=== PATIENT | female | born 1945 | race Caucasian/White ===

== ENCOUNTER 2020-07-28 14:27 | Inpatient (IN) | payer MEDICARE ==
[~2020-07-28] VITALS: Ht 157.5 cm; Wt 59.0 kg
[2020-07-28 15:32] LABS: Basophils # (auto) 0 10 ^3/uL (0-0.2); Eosinophils # (auto) 0 10 ^3/uL (0-0.8); Eosinophils % (auto) 0.2 % (0.0-7.0); Monocytes # (auto) 0.4 10 ^3/uL (0-1.3); Red Blood Cells 5.22 10^6/uL (4.0-5.20)
[2020-07-28 15:33] LABS: Basophils % (auto) 0.4 % (0.0-2.0); Hemoglobin 11.9 g/dL (12.2-16.2); Lymphocytes # (auto) 1.6 10 ^3/uL (0.4-5.4); Lymphocytes % (auto) 23.3 % (10.0-50.0); Mean Corpuscular Hemoglobin 22.8 pg (28.0-32.0); Mean Corpuscular Hgb Conc. 30.5 g/dL (32.0-36.0); Mean Corpuscular Volume 74.7 fL (80.0-100.0); Monocytes % (auto) 5.1 % (0.0-12.0); Nucleated Red Blood Cells % 0.9 %; Platelet Count (auto) 213 10^3/uL (140-450)
[2020-07-28 15:35] LABS: Red Cell Distribution Width 21.5 % (11.8-14.3)
[2020-07-28 15:57] LABS: Albumin 2.4 g/dL (3.4-5.0); Calcium 8.3 mg/dL (8.5-10.1); Potassium 5.1 mmol/L (3.5-5.1)
[2020-07-28 16:05] LABS: BUN/Creatinine Ratio 31.3; Bilirubin, Total 1.1 mg/dL (0.2-1.0)
[2020-07-28] MEDS ORDERED: POTASSIUM EFFERVESENT TAB 25 MEQ PO ONE (19:00)
[2020-07-28] MEDS ORDERED: FUROSEMIDE 40 MG/4 ML VIAL IV ONE (19:00)
[2020-07-28] MEDS ORDERED: ONDANSETRON HCL 4 MG/2 ML VIAL IV ONE (19:30)
[2020-07-28] MEDS ORDERED: ASPirin 81 mg TAB PO ONE (19:30)
[2020-07-28] MEDS ORDERED: MORPHINE SULFATE 4 MG/ML SYR/VIAL IV ONE (19:30)
[2020-07-28] MEDS ORDERED: cefTRIAXone 1GM/50ML D5W 50 ML IV ONE (19:30)
[2020-07-28] MEDS ORDERED: DOXYCYCLINE 100MG/250ML 250 ML IV ONE (19:30)
[2020-07-28] MEDS ORDERED: ONDANSETRON HCL 4 MG/2 ML VIAL IV PRN (21:00)
[2020-07-28] MEDS ORDERED: ACETAMINOPHEN 325 MG TAB PO PRN (21:00)
[2020-07-28] MEDS ORDERED: MORPHINE SULF INJ 2 MG/ML SYRINGE 1ML IV PRN (21:00)
[2020-07-28] MEDS ORDERED: NITROGLYCERIN 0.4 MG SL TAB SL PRN (21:00)
[2020-07-28] MEDS ORDERED: GABAPENTIN 300 MG CAP PO ONE (21:00)
[2020-07-28 21:20] LABS: Urine Bacteria FEW /hpf (None Seen); Urine Blood Negative /uL (Negative); Urine Hyaline Cast FEW /lpf (0 - 2); Urine Specific Gravity 1.008 (1.001-1.035); Urine WBC 1 /hpf (0 - 5)
[2020-07-28] MEDS: GABAPENTIN 300 MG CAP PO SCH (22:42)
[2020-07-28] MEDS: ATORVASTATIN 20 MG TAB PO SCH (22:46)
[2020-07-28] MEDS: ASCORBIC ACID 500 MG TAB PO SCH (22:46)
[2020-07-28] MEDS: HYDROcodone-ACET 5/325MG TAB PO PRN (23:11)
[2020-07-28] MEDS ORDERED: ALBUTEROL SULF 2.5 MG/0.5ML(0.5%) NEB SOLN ONE (23:50)
[2020-07-28] MEDS: ALBUTEROL SULF 2.5 MG/0.5ML(0.5%) NEB SOLN NEB PRN (23:53)
[2020-07-29 00:02] LABS: Calcium 8.3 mg/dL (8.5-10.1); Potassium 4.9 mmol/L (3.5-5.1)
[2020-07-29 00:04] LABS: BUN/Creatinine Ratio 35.2
[2020-07-29 02:29] VITALS: BP 124/55
[2020-07-29] MEDS ORDERED: INFLUENZA QUAD 2020-2021 0.5 ML SYRG IM ONE (04:15)
[2020-07-29] MEDS ORDERED: LOSA-39 PO (04:33)
[2020-07-29] MEDS ORDERED: HYDR-4072 PO (04:33)
[2020-07-29] MEDS ORDERED: GABA300C10 PO (04:33)
[2020-07-29] MEDS ORDERED: LEVO150T10 PO (04:33)
[2020-07-29] MEDS ORDERED: LORA0.5T20 PO (04:33)
[2020-07-29] MEDS ORDERED: OMEP-260 PO (04:33)
[2020-07-29] MEDS ORDERED: CELE1CAP8 PO (04:33)
[2020-07-29 05:12] VITALS: BP 122/59
[2020-07-29] MEDS: FUROSEMIDE 40 MG/4 ML VIAL IV SCH ×2 (05:50→17:44)
[2020-07-29] MEDS: LEVOTHYROXINE SODIUM 50 MCG TAB PO SCH (05:51)
[2020-07-29] MEDS: HYDROcodone-ACET 5/325MG TAB PO PRN ×2 (06:19→20:56)
[2020-07-29 08:00] VITALS: BP 132/64
[2020-07-29] MEDS: ASPirin 81 mg TAB PO SCH (09:23)
[2020-07-29] MEDS: ZINC SULFATE 220mg CAP or TAB PO SCH (09:23)
[2020-07-29] MEDS: ASCORBIC ACID 500 MG TAB PO SCH ×2 (09:23→23:07)
[2020-07-29] MEDS: PANTOPRAZOLE 40 MG TAB PO SCH (09:24)
[2020-07-29] MEDS: GABAPENTIN 300 MG CAP PO SCH ×2 (09:24→23:07)
[2020-07-29] MEDS: AZITHROMYCIN 500MG/ 250ML 250 ML IV SCH (09:25)
[2020-07-29] MEDS: ENOXAPARIN SOD 40 MG/0.4 ML SYRINGE SC SCH (09:25)
[2020-07-29 09:43] LABS: Basophils # (auto) 0 10 ^3/uL (0-0.2); Eosinophils # (auto) 0.1 10 ^3/uL (0-0.8); Lymphocytes # (auto) 1.5 10 ^3/uL (0.4-5.4); Monocytes # (auto) 0.5 10 ^3/uL (0-1.3)
[2020-07-29 09:45] LABS: Basophils % (auto) 0.2 % (0.0-2.0); Eosinophils % (auto) 1.4 % (0.0-7.0); Hematocrit 38.6 % (36.0-46.0); Mean Corpuscular Hemoglobin 22.8 pg (28.0-32.0); Mean Corpuscular Hgb Conc. 31.1 g/dL (32.0-36.0); Mean Corpuscular Volume 73.3 fL (80.0-100.0); Monocytes % (auto) 5.5 % (0.0-12.0); Neutrophils # (auto) 6.7 10 ^3/uL (1.6-8.6); Neutrophils % (auto) 75.9 % (37.0-80.0); Nucleated Red Blood Cells % 0.6 %; Platelet Count (auto) 241 10^3/uL (140-450); Red Blood Cells 5.26 10^6/uL (4.0-5.20); White Blood Cell 8.8 10^3/uL (4.4-10.8)
[2020-07-29] MEDS ORDERED: LOSARTAN POTASSIUM 50 MG TAB PO SCH (10:00)
[2020-07-29 10:05] LABS: Albumin 2.4 g/dL (3.4-5.0); BUN/Creatinine Ratio 35.9; Calcium 8.3 mg/dL (8.5-10.1); Potassium 4.5 mmol/L (3.5-5.1)
[2020-07-29 10:06] LABS: Red Cell Distribution Width 21.6 % (11.8-14.3)
[2020-07-29 10:11] LABS: Bilirubin, Total 1.1 mg/dL (0.2-1.0); Total Protein 5.9 g/dL (6.4-8.2)
[2020-07-29] MEDS ORDERED: CARVEDILOL 12.5 MG TAB PO ONE (11:15)
[2020-07-29 11:27] LABS: Cholesterol 94 mg/dL (< 200)
[2020-07-29 11:29] LABS: HDL Cholesterol 13 mg/dL (40-59); LDL Cholesterol 74 mg/dL (< 100); Triglycerides 80 mg/dL (< 150)
[2020-07-29] MEDS ORDERED: CEFTRIAXONE SODIUM 2 GM in D5W 5% 50 ML IV ONE (13:15)
[2020-07-29] MEDS ORDERED: LORazepam 0.5 MG TAB PO PRN (13:15)
[2020-07-29 16:00] VITALS: BP 141/75
[2020-07-29 21:35] VITALS: BP 139/71
[2020-07-29] MEDS: SACUBITRIL-VALSARTAN 24mg/26mg TAB PO SCH (23:06)
[2020-07-29] MEDS: CARVEDILOL 12.5 MG TAB PO SCH (23:06)
[2020-07-29] MEDS: ATORVASTATIN 20 MG TAB PO SCH (23:07)
[2020-07-29] MEDS: TEMAZEPAM 15 MG CAP PO PRN (23:09)
[2020-07-30 05:16] VITALS: BP 114/53
[2020-07-30] MEDS: LEVOTHYROXINE SODIUM 50 MCG TAB PO SCH (06:57)
[2020-07-30] MEDS: FUROSEMIDE 40 MG/4 ML VIAL IV SCH ×2 (06:57→18:26)
[2020-07-30 07:50] LABS: Potassium 3.2 mmol/L (3.5-5.1)
[2020-07-30 08:00] LABS: Albumin 2.2 g/dL (3.4-5.0); BUN/Creatinine Ratio 33.3; Bilirubin, Total 1.4 mg/dL (0.2-1.0); Calcium 7.7 mg/dL (8.5-10.1); Magnesium 1.7 mg/dL (1.6-2.6); Total Protein 5.6 g/dL (6.4-8.2)
[2020-07-30 08:44] VITALS: BP 102/50
[2020-07-30] MEDS ORDERED: POTASSIUM CHL 20 Meq TABLET PO ONE (11:45)
[2020-07-30] MEDS ORDERED: MAGNESIUM SULFATE 1GM/100ML 100 ML IV ONE (11:45)
[2020-07-30] MEDS: ZINC SULFATE 220mg CAP or TAB PO SCH (12:07)
[2020-07-30] MEDS: cefTRIAXone 1GM/50ML D5W 50 ML IV SCH (12:07)
[2020-07-30] MEDS: ASPirin 81 mg TAB PO SCH (12:07)
[2020-07-30] MEDS: SACUBITRIL-VALSARTAN 24mg/26mg TAB PO SCH ×2 (12:08→22:29)
[2020-07-30] MEDS: CARVEDILOL 12.5 MG TAB PO SCH ×2 (12:08→22:25)
[2020-07-30] MEDS: PANTOPRAZOLE 40 MG TAB PO SCH (12:08)
[2020-07-30] MEDS: ASCORBIC ACID 500 MG TAB PO SCH ×2 (12:11→22:29)
[2020-07-30] MEDS: ENOXAPARIN SOD 40 MG/0.4 ML SYRINGE SC SCH (12:12)
[2020-07-30] MEDS: AZITHROMYCIN 500MG/ 250ML 250 ML IV SCH (12:20)
[2020-07-30] MEDS ORDERED: POTASSIUM EFFERVESENT TAB 25 MEQ PO ONE (13:45)
[2020-07-30 16:10] VITALS: BP 120/51
[2020-07-30 21:21] VITALS: BP 132/55
[2020-07-30] MEDS: ATORVASTATIN 20 MG TAB PO SCH (22:29)
[2020-07-30] MEDS: TEMAZEPAM 15 MG CAP PO PRN (22:30)
[2020-07-30] MEDS: HYDROcodone-ACET 5/325MG TAB PO PRN (22:30)
[2020-07-31] MEDS: HYDROcodone-ACET 5/325MG TAB PO PRN (03:51)
[2020-07-31 04:39] VITALS: BP 127/26
[2020-07-31] MEDS: LEVOTHYROXINE SODIUM 50 MCG TAB PO SCH (06:00)
[2020-07-31] MEDS: FUROSEMIDE 40 MG/4 ML VIAL IV SCH ×2 (06:00→17:32)
[2020-07-31 06:49] LABS: Albumin 2.1 g/dL (3.4-5.0); Bilirubin, Total 1.3 mg/dL (0.2-1.0); Calcium 7.3 mg/dL (8.5-10.1); Magnesium 1.8 mg/dL (1.6-2.6); Total Protein 5.4 g/dL (6.4-8.2)
[2020-07-31 06:57] LABS: Potassium 2.9 mmol/L (3.5-5.1)
[2020-07-31 07:48] VITALS: BP 122/59
[2020-07-31] MEDS: ENOXAPARIN SOD 40 MG/0.4 ML SYRINGE SC SCH (10:00)
[2020-07-31] MEDS: PANTOPRAZOLE 40 MG TAB PO SCH ×2 (10:00→10:34)
[2020-07-31] MEDS: ZINC SULFATE 220mg CAP or TAB PO SCH ×2 (10:00→10:32)
[2020-07-31] MEDS: ASCORBIC ACID 500 MG TAB PO SCH ×3 (10:00→22:23)
[2020-07-31] MEDS: ASPirin 81 mg TAB PO SCH (10:33)
[2020-07-31] MEDS: CARVEDILOL 12.5 MG TAB PO SCH ×2 (10:33→22:23)
[2020-07-31] MEDS: SACUBITRIL-VALSARTAN 24mg/26mg TAB PO SCH ×2 (10:33→22:22)
[2020-07-31] MEDS: AZITHROMYCIN 500MG/ 250ML 250 ML IV SCH (10:34)
[2020-07-31] MEDS: cefTRIAXone 1GM/50ML D5W 50 ML IV SCH (10:35)
[2020-07-31] MEDS ORDERED: POTASSIUM CHLORIDE 40 MEQ, LIDOCAINE 1% (LOCAL ANESTH.) 4 ML in SODIUM CHL 0.9% 250 ML IV ONE (12:45)
[2020-07-31] MEDS ORDERED: POTASSIUM EFFERVESENT TAB 25 MEQ PO ONE (12:45)
[2020-07-31 16:00] VITALS: BP 132/59
[2020-07-31] MEDS ORDERED: LORazepam 0.5 MG TAB PO PRN (17:45)
[2020-07-31] MEDS: ATORVASTATIN 20 MG TAB PO SCH (22:22)
[2020-07-31 23:47] VITALS: BP 133/60
[2020-08-01 05:00] VITALS: BP 132/63
[2020-08-01] MEDS: FUROSEMIDE 40 MG/4 ML VIAL IV SCH ×2 (05:52→18:22)
[2020-08-01] MEDS: ALBUTEROL SULF 2.5 MG/0.5ML(0.5%) NEB SOLN NEB PRN (06:15)
[2020-08-01 06:25] LABS: Basophils # (auto) 0 10 ^3/uL (0-0.2); Eosinophils # (auto) 0 10 ^3/uL (0-0.8); Eosinophils % (auto) 0.1 % (0.0-7.0); Lymphocytes # (auto) 1.2 10 ^3/uL (0.4-5.4); Monocytes # (auto) 0.5 10 ^3/uL (0-1.3); Monocytes % (auto) 5.7 % (0.0-12.0); Neutrophils # (auto) 6.9 10 ^3/uL (1.6-8.6); Neutrophils % (auto) 80.1 % (37.0-80.0)
[2020-08-01 06:28] LABS: Hematocrit 40.7 % (36.0-46.0); Hemoglobin 12.8 g/dL (12.2-16.2); Lymphocytes % (auto) 14.1 % (10.0-50.0); Mean Corpuscular Hemoglobin 22.8 pg (28.0-32.0); Mean Corpuscular Hgb Conc. 31.4 g/dL (32.0-36.0); Mean Corpuscular Volume 72.8 fL (80.0-100.0); Nucleated Red Blood Cells % 0.4 %; Platelet Count (auto) 248 10^3/uL (140-450); Red Blood Cells 5.59 10^6/uL (4.0-5.20); White Blood Cell 8.7 10^3/uL (4.4-10.8)
[2020-08-01 06:58] LABS: Albumin 2.3 g/dL (3.4-5.0); BUN/Creatinine Ratio 27.3; Bilirubin, Total 1.5 mg/dL (0.2-1.0); Calcium 7.3 mg/dL (8.5-10.1); Total Protein 6.1 g/dL (6.4-8.2)
[2020-08-01 07:12] LABS: Red Cell Distribution Width 21.9 % (11.8-14.3)
[2020-08-01 07:29] LABS: Potassium 2.8 mmol/L (3.5-5.1)
[2020-08-01] MEDS: LORazepam 2MG/ML-1ML VIAL IV PRN (07:57)
[2020-08-01] MEDS: Ensure HIGH Protein Chocolate 8oz Bottle PO SCH ×4 (07:58→18:23)
[2020-08-01 08:00] VITALS: BP 137/59
[2020-08-01] MEDS: cefTRIAXone 1GM/50ML D5W 50 ML IV SCH (09:45)
[2020-08-01] MEDS: ASPirin 81 mg TAB PO SCH (10:00)
[2020-08-01] MEDS: ZINC SULFATE 220mg CAP or TAB PO SCH (10:00)
[2020-08-01] MEDS: ASCORBIC ACID 500 MG TAB PO SCH ×2 (10:00→22:00)
[2020-08-01] MEDS: CARVEDILOL 12.5 MG TAB PO SCH ×2 (10:00→22:00)
[2020-08-01] MEDS: SACUBITRIL-VALSARTAN 24mg/26mg TAB PO SCH ×2 (10:00→22:00)
[2020-08-01] MEDS: PANTOPRAZOLE 40 MG TAB PO SCH (10:00)
[2020-08-01] MEDS: ENOXAPARIN SOD 40 MG/0.4 ML SYRINGE SC SCH (10:00)
[2020-08-01] MEDS: AZITHROMYCIN 500MG/ 250ML 250 ML IV SCH (10:00)
[2020-08-01] MEDS ORDERED: POTASSIUM CHLORIDE 40 MEQ, LIDOCAINE 1% (LOCAL ANESTH.) 4 ML in SODIUM CHL 0.9% 250 ML IV ONE (12:45)
[2020-08-01] MEDS ORDERED: POTASSIUM EFFERVESENT TAB 25 MEQ PO ONE (12:45)
[2020-08-01] MEDS: MORPHINE SULF INJ 2 MG/ML SYRINGE 1ML IV PRN ×2 (13:44→21:05)
[2020-08-01 17:06] VITALS: BP 157/72
[2020-08-01 18:29] LABS: Calcium 7.5 mg/dL (8.5-10.1); Potassium 3.2 mmol/L (3.5-5.1)
[2020-08-01 20:56] VITALS: BP 138/71
[2020-08-01 21:09] VITALS: BP 138/71
[2020-08-01] MEDS: ATORVASTATIN 20 MG TAB PO SCH (22:00)
[2020-08-02] MEDS: LORazepam 2MG/ML-1ML VIAL IV PRN (00:45)
[2020-08-02 05:00] VITALS: BP 130/65
[2020-08-02] MEDS: FUROSEMIDE 40 MG/4 ML VIAL IV SCH (06:02)
[2020-08-02] MEDS: MORPHINE SULF INJ 2 MG/ML SYRINGE 1ML IV PRN (06:37)
[2020-08-02 06:57] LABS: Basophils # (auto) 0 10 ^3/uL (0-0.2); Eosinophils # (auto) 0 10 ^3/uL (0-0.8)
[2020-08-02 07:00] LABS: Hematocrit 39.2 % (36.0-46.0); Hemoglobin 11.8 g/dL (12.2-16.2); Lymphocytes % (auto) 9.1 % (10.0-50.0); Mean Corpuscular Hemoglobin 22.2 pg (28.0-32.0); Mean Corpuscular Hgb Conc. 30.2 g/dL (32.0-36.0); Mean Corpuscular Volume 73.5 fL (80.0-100.0); Monocytes # (auto) 0.7 10 ^3/uL (0-1.3); Monocytes % (auto) 5.7 % (0.0-12.0); Neutrophils # (auto) 9.8 10 ^3/uL (1.6-8.6); Neutrophils % (auto) 85.2 % (37.0-80.0); Nucleated Red Blood Cells % 0.1 %; Platelet Count (auto) 236 10^3/uL (140-450); Red Blood Cells 5.33 10^6/uL (4.0-5.20); White Blood Cell 11.5 10^3/uL (4.4-10.8)
[2020-08-02 07:07] LABS: Potassium 3.1 mmol/L (3.5-5.1)
[2020-08-02 07:13] LABS: Calcium 7.7 mg/dL (8.5-10.1)
[2020-08-02 07:33] LABS: Red Cell Distribution Width 21.6 % (11.8-14.3)
[2020-08-02] MEDS: Ensure HIGH Protein Chocolate 8oz Bottle PO SCH ×2 (08:03→12:00)
[2020-08-02] MEDS ORDERED: LORazepam 2MG/ML-1ML VIAL IV PRN (09:00)
[2020-08-02] MEDS ORDERED: HYOSCYAMINE SULF 0.125 MG ODT TAB PO PRN (09:00)
[2020-08-02] MEDS ORDERED: MORPHINE SULF INJ 2 MG/ML SYRINGE 1ML IV PRN (09:00)
[2020-08-02] MEDS: cefTRIAXone 1GM/50ML D5W 50 ML IV SCH (09:01)
[2020-08-02] MEDS: AZITHROMYCIN 500MG/ 250ML 250 ML IV SCH (09:41)
[2020-08-02] MEDS: ASPirin 81 mg TAB PO SCH (09:41)
[2020-08-02] MEDS: ZINC SULFATE 220mg CAP or TAB PO SCH (09:41)
[2020-08-02] MEDS: CARVEDILOL 12.5 MG TAB PO SCH (09:42)
[2020-08-02] MEDS: PANTOPRAZOLE 40 MG TAB PO SCH (09:42)
[2020-08-02] MEDS: ASCORBIC ACID 500 MG TAB PO SCH (09:42)
[2020-08-02] MEDS: ENOXAPARIN SOD 40 MG/0.4 ML SYRINGE SC SCH (09:42)
[2020-08-02] MEDS: SACUBITRIL-VALSARTAN 24mg/26mg TAB PO SCH (09:42)
[2020-08-02] MEDS: POTASSIUM CHL 20MEQ/100ML 100 ML IV SCH ×2 (13:31→15:33)
[2020-08-02 16:00] VITALS: BP 124/44
[2020-08-02 16:15] VITALS: BP 130/65
== END 2020-08-02 17:00 | disposition hospice, home (50) | DRG 280 ==
LOC: ER 14:27 → EDBD 14:27 → TELE 14:28 → TELE-CENTR 07-29 02:15
PROVIDERS: ADMIT Nurse Practitioner; ATTEND Internal Medicine
PROC: 3E02340 Introduction of Influenza Vaccine into Muscle, Percutaneous Approach (ICD-10-PCS; 2020-07-29)
PROC: 5A09357 Assistance with Respiratory Ventilation, Less than 24 Consecutive Hours, Continuous Positive Airway Pressure (ICD-10-PCS; principal; 2020-08-01)
DX: I13.0 Hypertensive heart and chronic kidney disease with heart failure and stage 1 through stage 4 chronic kidney disease, or unspecified chronic kidney disease (principal); J18.9 Pneumonia, unspecified organism; I21.A1 Myocardial infarction type 2; J96.01 Acute respiratory failure with hypoxia; I50.43 Acute on chronic combined systolic (congestive) and diastolic (congestive) heart failure; N17.0 Acute kidney failure with tubular necrosis; G93.41 Metabolic encephalopathy; E44.0 Moderate protein-calorie malnutrition; Z20.822 Contact with and (suspected) exposure to COVID-19; N18.32 Chronic kidney disease, stage 3b; K76.0 Fatty (change of) liver, not elsewhere classified; E78.5 Hyperlipidemia, unspecified; E03.9 Hypothyroidism, unspecified; I50.82 Biventricular heart failure; E87.6 Hypokalemia; F41.1 Generalized anxiety disorder; Z51.5 Encounter for palliative care; Z23 Encounter for immunization; Z82.49 Family history of ischemic heart disease and other diseases of the circulatory system; Z91.14 Patient's other noncompliance with medication regimen; Z83.3 Family history of diabetes mellitus
CPT/HCPCS: 36415; 36600; 71045; 76705; 80048; 80053; 80061; 81001; 82306; 82728; 82805; 83735; 83880; 84443; 84484; 85025; 87426; 93005; 93306; 94640; 94660; 96365; 96367; 96375; 97163; G0378; J0696; J2001; J3480; J3490; J7060